=== PATIENT | female | born 1955 | race Caucasian/White ===

== ENCOUNTER → 2019-11-24 | Outpatient (CLI) | payer BC, OTHER ==
[~2019-11-24] MED LIST: ALLOPURINOL 30300 M2 PO; AMBIEN 5 MG TABL5 M1 PO; BACTRIM 400-801 EACH PO; BACTRIM DS TAB1 EAC1 PO; BACTRIM DS TAB1 EACH PO; ENOXAPARIN40 MG/0.1 SUBQ; FEVERALL650 MG RECTAL; FLEXERIL PO; FLONASE 0.05%50 MCG NASAL; FOSAMAX 70 MG T70 MG PO; FOSAMAX PLUS D1 EAC1 PO; HYDROCODONE-AP1 EAC6 PO; IBUPROFEN 800800 MG PO; KLOR-CON 1010 MEQ PO; LOCOID 0.1% CRE15 GM TP; MACRODANTIN100 MG PO; MAXZIDE-25 MG1 EACH PO; NAPROSYN500 MG PO; OXYCONTIN10 M1 PO; PERCOCET 5-3251 EACH PO; PERCOCET PO; PHENAZOPYRIDIN200 M2 PO; VALIUM5 MG PO; VITAMIN D 5050000 I1 PO; XARELTO10 MG PO
== END ==
LOC: HYPER 12:11
PROVIDERS: ATTEND Emergency Medicine
DX: L97.812 Non-pressure chronic ulcer of other part of right lower leg with fat layer exposed (principal); L03.115 Cellulitis of right lower limb; L03.116 Cellulitis of left lower limb; L30.9 Dermatitis, unspecified; L20.9 Atopic dermatitis, unspecified; R60.0 Localized edema; R21 Rash and other nonspecific skin eruption; I10 Essential (primary) hypertension; E78.5 Hyperlipidemia, unspecified; L40.9 Psoriasis, unspecified; M81.0 Age-related osteoporosis without current pathological fracture; M19.90 Unspecified osteoarthritis, unspecified site; M85.80 Other specified disorders of bone density and structure, unspecified site; M48.00 Spinal stenosis, site unspecified

== ENCOUNTER → 2019-12-07 | Outpatient (CLI) | payer BC, OTHER | LOC: HYPER 11:58 | PROVIDERS: ATTEND Emergency Medicine | DX: L97.812 Non-pressure chronic ulcer of other part of right lower leg with fat layer exposed (principal); L03.115 Cellulitis of right lower limb; L03.116 Cellulitis of left lower limb; R21 Rash and other nonspecific skin eruption; L20.9 Atopic dermatitis, unspecified; R60.0 Localized edema; M19.90 Unspecified osteoarthritis, unspecified site; M48.00 Spinal stenosis, site unspecified; M85.80 Other specified disorders of bone density and structure, unspecified site; L40.9 Psoriasis, unspecified; M10.9 Gout, unspecified; E78.5 Hyperlipidemia, unspecified ==

== ENCOUNTER 2020-09-20 14:11 | Inpatient (IN) | payer BC, OTHER ==
[~2020-09-20] VITALS: Ht 160 cm; Wt 59.8 kg
--- NOTE | 2020-09-20 14:30 | NUR ---
PT SENT FROM PCP OFFICE WITH STATED NEW ONSET AFIB. PT ALSO STATES "LABS ARE OFF" PT NOTES SWELLING IN BLE "FOR AWHILE" PT DENIES SOB OR CP. PT STATES HX OF DERMATITIS AND PSORIOSIS AND STATES SHE GETS A SHOT BIWEEKLY FOR THIS. PT UPPER BODY HAS MULTIPLE AREAS OF BRUISING AND SKIN ALL OVER IS EXTREMELY FRAGILE IN NATURE. PT IS IN WHAT APPEARS TO BE AFIB ON THE MONITOR. PT HAS HX OF DAILY DRINKING "SEVERAL MIXED DRINKS AT NIGHT" STATES SHE PARTIED THIS WEEKEND AT [facility]. PT HAS SLIGHT TREMOR AND STATES SHE SOMETIMES GETS THAT WHEN SHE DRINKS A LOT. PT DENIES HX OF ETOH WITHDRAWAL IN THE PAST. PT IS ALERT AND ORIENTED X4, GCS 15, PT VSS ON RA, MARTINEZ, CALL LIGHT ENCOURAGED TO USE
[2020-09-20 14:36] VITALS: BP 158/94
[2020-09-20 15:11] LABS: ABSOLUTE NEUTROPHILS 5.3 thou/uL (1.4-8.2); BASOPHILS 0.8 % (0.0-2.0); EOSINOPHILS 2.3 % (0.0-3.0); HEMATOCRIT 32.9 % (37.0-47.0); HEMOGLOBIN 10.5 gm/dL (12.0-15.0); LYMPHOCYTES 20.4 % (24.0-44.0); MCH 35.3 pg (26.0-34.0); MCV 110.2 fL (80.0-100.0); MONOCYTES 10.1 % (1.0-8.0); PLATELET COUNT 212 thou/uL (150-400); POLYS 66.4 % (36.0-66.0); RBC 2.99 mil/uL (4.20-5.00); RDW 17.3 % (10.5-14.5)
[2020-09-20 15:21] LABS: ANION GAP 9 mmol/L (7-16); BUN 16 mg/dL (7-18); CALCIUM 8.6 mg/dL (8.5-10.1); CHLORIDE 109 mmol/L (98-107); CO2 24 mmol/L (21-32); GLUCOSE 112 mg/dL (74-106); POTASSIUM 5.4 mmol/L (3.5-5.1); SODIUM 142 mmol/L (136-145)
[2020-09-20 15:29] LABS: D-DIMER 2.48 ug/mLFEU (0.19-0.50)
[2020-09-20 15:32] LABS: ALBUMIN 2.2 g/dL (3.4-5.0); MAGNESIUM 1.4 mg/dL (1.8-2.4); SGOT 46 U/L (15-37); SGPT 16 U/L (14-59); TOTAL BILIRUBIN 0.7 mg/dL (0.2-1.0); TOTAL PROTEIN 6.2 g/dL (6.4-8.2); TROPONIN-I <0.06 ng/mL (<0.06)
--- NOTE | 2020-09-20 16:02 | NUR ---
WENT TO ESTABLISH SECOND LINE AT THIS TIME PER ED PROVIDER. THIS RN DID NOT SEE ANYTHING IN THE PT AC SPACE OR HIGHER ON EITHER ARM. AFTER LOOKING PT STATES "I DO NOT WANT TO STAY HERE OVERNIGHT AND I DO NOT WANT TO SIT HERE AND BE POKED AND PRODDED ALL NIGHT, I WANT TO GO HOME" THIS RN EXPLAINED THE REASONING BEHIND THE TESTS WE RAN AND NEEDED TO STILL RUN AND THE REASON SHE WOULD MOST LIKELY NEED TO BE ADMITTED. PT NEEDS FURTHER EDUCATION. ED PROVIDER NOTIFIED
[2020-09-20 16:23] LABS: TARGET CELLS FEW
--- NOTE | 2020-09-20 17:50 | NUR ---
HOSPITALIST AWARE THAT PT DOES NOT HAVE APPROPRIATE LINE FOR CTA AT THIS TIME PT HAD REFUSED AT THE TIME FOR IV AND WAS NOT WANTING TO BE ADMITTED. AFTER FURTHER DISCUSSION WITH ED PROVIDER AND THEN HOSPITALIST PT WILLING TO BE ADMITTED. WILL CONTINUE TO FOR SECOND APPROPRIATE IV LINE IV TEAM HAS GONE HOME FOR THE NIGHT
[2020-09-20] MEDS ORDERED: ALLOPURINOL 30300 M1 PO (18:18)
[2020-09-20] MEDS ORDERED: VALSARTAN80 MG PO (18:19)
[2020-09-20] MEDS ORDERED: NEURONTIN 300M300 M2 PO (18:20)
[2020-09-20] MEDS ORDERED: ESTRADIOL42.5 GM VAG (18:28)
[2020-09-20] MEDS ORDERED: BETAMETHASONE D15 G4 TOP (18:29)
[2020-09-20] MEDS ORDERED: MUPIROCIN22 GM TOP (18:29)
[2020-09-20] MEDS ORDERED: DESLORATADINE5 MG PO (18:30)
[2020-09-20] MEDS ORDERED: FOLIC ACID1 MG PO (18:30)
[2020-09-20] MEDS ORDERED: NAPROSYN500 MG PO (18:31)
[2020-09-20] MEDS ORDERED: DUPIXENT300 MG/2 M SUBQ (18:32)
[2020-09-20 18:45] VITALS: BP 134/83
--- NOTE | 2020-09-20 18:47 | NUR ---
REPORT GIVEN TO SHERYL WILLIAMSON AT THIS TIME. READY FOR TRANSPORT TO CCU AFTER CTA.
--- NOTE | 2020-09-20 19:00 | NUR ---
REPORT GIVEN TO SHERYL BRYANT AT THIS TIME. RN AWARE REPORT HAS BEEN CALLED TO CCU AND THAT PT IS CURRENTLY IS IN CT AND IS READY FOR TRANSPORT ONCE SHE RETURNS BACK TO ED
[2020-09-20 19:49] LABS: INR 0.97; PROTIME 10.6 Seconds (10.5-12.1)
[2020-09-20 20:42] VITALS: BP 120/77
[2020-09-20] MEDS ORDERED: SINGULAIR 10 MG10 M1 PO (21:27)
[2020-09-20] MEDS ORDERED: FLEXERIL PO (21:31)
[2020-09-21 01:09] VITALS: BP 96/64
[2020-09-21 04:33] VITALS: BP 101/73
--- NOTE | 2020-09-21 06:14 | NUR ---
PT ARRIVED TO UNIT APPROX 2024, ADMISSION AND ASSESSMENT COMPLETED, CONSENTS SIGNED. PT STEADY TO USE BSC BY SELF, USES CANE TO AMBULATE. INTERMIT AFIB OVERNIGHT, OCCASIONALLY TACHY IN THE 120-130 RANGE, BEFORE RETURNING TO A SR IN 80'S. FIRM EDEMA IN LOWER LEGS, WITH SOME PITTING EDEMA ALONG THE INNER THIGHS, RIGHT WORSE THAN LEFT. HAS PSORIASIS AND CHRONIC DERMATITIS, WITH RASHY AREAS ON INNER THIGHS AND CALVES/SHINS; SKIN TEAR ON CENTER CHEST WHERE A TELE PATCH WAS REMOVED. NO OTHER CONCERNS, WILL CONTINUE TO MONITOR.
--- NOTE | 2020-09-21 06:44 | EKG ---
[place] [address] [facility] [place] [address] ELECTROCARDIOGRAM REPORT Name: NICHOL HOUSE Room #: 201-P ADM IN M.R.#: [id number] Admission: 09/20/20 Attend Phys: Pradeep Schwab MD Discharge: Date of : 55 Report #: [id number] 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 : 1955 Requested By: Karin Mandel Order Number: [id number] : Jose Braun Measurements Intervals [place] Rate: 108 P: UT: QRS: -5 QRSD: 95 T: QT: 291 QTc: 390 Interpretive Statements Atrial fibrillation Low voltage, extremity and precordial leads Borderline repolarization abnormality Compared to ECG 11/07/2014 10:07:08 Low QRS voltage now present Sinus rhythm no longer present Poor R-wave progression no longer present Electronically Signed On 09-21-2020 6:44:40 CDT by Jose Braun [email or web address] <ELECTRONICALLY SIGNED> By: Jose Braun MD, [facility] 09/21/20 0644 1441 1441 Jose Braun MD, [facility] /EPI
[2020-09-21 07:56] VITALS: BP 111/69
[2020-09-21 08:48] LABS: CALCIUM 8.5 mg/dL (8.5-10.1); CREATININE 0.9 mg/dL (0.6-1.0); MAGNESIUM 1.8 mg/dL (1.8-2.4)
[2020-09-21 08:49] LABS: POTASSIUM 4.1 mmol/L (3.5-5.1)
--- NOTE | 2020-09-21 09:34 | NUR ---
PT IS AXOX4, PLEASANT; DENIES PAIN. VSS, AFEBRILE. PT HAS BEEN SR AND AFIB ON MONITOR. CARDIOLOGY CONSULTED. PT TO HAVE ECHO THIS AM. LOSARTAN D/C AND METOPROLOL STARTED. POC IS TO HAVE CARDIOLOGY ASSESS ECHO; CONTINUE TO MONITOR HR/BP. LOW FALL PRECAUTIONS. PT IS UP TO BSC, CANE FOR STAIR USE ONLY STATED BY THE PT. NO CONCERNS AT THIS TIME.
[2020-09-21 11:38] VITALS: BP 104/73
--- NOTE | 2020-09-21 13:20 | 2DMMODE ---
[facility] [address] [place] [address] 2 D/M-MODE ECHOCARDIOGRAM Name: NICHOL HOUSE Room #: 201-P ADM IN M.R.#: [id number] Admission: 09/20/20 Attend Phys: Pradeep Schwab MD Discharge: Date of : 55 Report #: [id number] THIS REPORT FOR: cc: CINTHYA CARTER Physician not on staff Romero Caldwell MD ~ APPROVED REPORT Study performed: 09/21/2020 11:00:49 EXAM: Comprehensive 2D, Doppler, and color-flow Echocardiogram Patient Location: Bedside Room #: 201 Status: routine BSA: 1.61 HR: 77 bpm BP: 111/69 mmHg Rhythm: NSR Other Information Study Quality: Good Indications Congestive Heart Failure Hypertension/HDD 2D Dimensions RVDd: 35.47 mm IVSd: 9.84 (7-11mm) LVOT Diam: 18.18 (18-24mm) LVDd: 42.51 mm PWd: 9.03 (7-11mm) Ascending Ao: 30.16 (22-36mm) LVDs: 29.56 (25-40mm) Left Atrium: 37.57 (27-40mm) Aortic Root: 33.44 mm IVC: 26.00 mm Volumes Left Atrial Volume (Systole) Single Plane 4CH: 69.72 mL Single Plane 2CH: 54.81 mL LA ESV Index: 43.00 mL/m2 Aortic Valve AoV Peak Tony.: 0.84 m/s AO Peak Gr.: 2.85 mmHg LVOT Max P.54 mmHg LVOT Max V: 0.80 m/s [facility] [address] [place] [address] 2 D/M-MODE ECHOCARDIOGRAM Name: LACYNICHOL Room #: 201-P [facility] IN [facility].#: [id number] Admission: 09/20/20 Attend Phys: Mary Macias Discharge: Date of : 55 Report #: [id number] SOLEDAD Vmax: 2.45 cm2 Mitral Valve E/A Ratio: 1.9 MV Decel. Time: 137.24 ms MV E Max Tony.: 1.14 m/s MV A Tony.: 0.60 m/s MV PHT: 39.80 ms IVRT: 73.82 ms Pulmonary Valve PV Peak Tony.: 0.95 m/s PV Peak Gr.: 3.62 mmHg Pulmonary Vein P Vein S: 0.30 m/s P Vein A: 0.17 m/s P Vein D: 0.29 m/s P Vein A Dur.: 92.3 msec P Vein S/D Ratio: 1.03 Tricuspid Valve TR Peak Tony.: 2.96 m/s TR Peak Gr.: 35.14 mmHg PA Pressure: 45.00 mmHg Left Ventricle The left ventricle is normal size. There is normal left ventricular wall thickness. The left ventricular systolic function is normal. The left ventricular ejection fraction is within the normal range. LVEF is 60-65%. Right Ventricle The right ventricle is normal size. The right ventricular systolic function is normal. Atria Left atrium is dilated. Right atrium is dilated. Aortic Valve The aortic valve is normal in structure. The Aortic valve is sclerotic. No aortic regurgitation is present. There is no aortic valvular stenosis. Mitral Valve The mitral valve is normal in structure. Mild to moderate mitral regurgitation. No evidence of mitral valve stenosis. Tricuspid Valve [facility] [address] [place] [address] 2 D/M-MODE ECHOCARDIOGRAM Name: NICHOL HOUSE Room #: 201-P [facility] IN .R.#: [id number] Admission: 09/20/20 Attend Phys: Mary Macias Discharge: Date of : 55 Report #: [id number] The tricuspid valve is normal in structure. There is mild to moderate tricuspid regurgitation. Estimated PAP 42 mmHg. Pulmonic Valve The pulmonary valve is normal in structure. There is no pulmonic valvular regurgitation. Great Vessels The aortic root is normal in size. IVC is dilated and collapses <50% with inspiration. Pericardium There is no pericardial effusion. <Conclusion> The left ventricle is normal size. There is normal left ventricular wall thickness. The left ventricular systolic function is normal. The right ventricle is normal size. Left atrium is dilated. The Aortic valve is sclerotic. Mild to moderate mitral regurgitation. There is mild to moderate tricuspid regurgitation. <ELECTRONICALLY SIGNED> By: Romero Caldwell MD 09/21/209 18 18 Romero Caldwell MD /INF
[2020-09-21 15:38] VITALS: BP 107/70
--- NOTE | 2020-09-21 16:00 | EKG ---
[place] [address] [facility] [place] [address] ELECTROCARDIOGRAM REPORT Name: NICHOL HOUSE Room #: 201-P ADM IN M.R.#: [id number] Admission: 09/20/20 Attend Phys: Pradeep Schwab MD Discharge: Date of : 55 Report #: [id number] [facility] ED Test Date: 2020-09-20 Test Time: 14:17:06 Pat Name: NICHOL HOUSE Department: Room: 201 Gender: F Mapping Pilot: CONSTANTINO : 1955 Requested By: Pradeep Schwab Order Number: [id number] : Jose Braun Measurements Intervals [place] Rate: 167 P: -4 IA: 109 QRS: 6 QRSD: 163 T: 1 QT: 362 QTc: 604 Interpretive Statements Artifact, Normal Sinus Rhythm at 70 BPM Compared to ECG 11/07/2014 10:07:08 No significant change Electronically Signed On 09-21-2020 16:00:16 CDT by Jose Braun [email or web address] <ELECTRONICALLY SIGNED> By: Jose Braun MD, [facility] 09/21/20 1600 1417 16 Jose Braun MD, FAC /EPI
[2020-09-21 19:18] VITALS: BP 109/76
[2020-09-22 03:58] VITALS: BP 115/78
[2020-09-22 04:18] LABS: HEMATOCRIT 28.2 % (37.0-47.0); HEMOGLOBIN 9.2 gm/dL (12.0-15.0); MCHC 32.6 g/dL (28.0-37.0); MCV 110.5 fL (80.0-100.0); RBC 2.56 mil/uL (4.20-5.00); RDW 17.2 % (10.5-14.5); WBC 7.3 thou/uL (4.0-11.0)
[2020-09-22 04:29] LABS: CALCIUM 8.6 mg/dL (8.5-10.1); CREATININE 1.1 mg/dL (0.6-1.0); MAGNESIUM 1.8 mg/dL (1.8-2.4); POTASSIUM 4.2 mmol/L (3.5-5.1)
--- NOTE | 2020-09-22 06:26 | NUR ---
ASSUME CARE 1900. PT/VITALS STABLE. INTERMITTENT BILATERAL LOWER EXTREMITY PAIN/PAIN PILL AND MUSCLE RELAXANT ON BOARD. TOLERATES ACTIVITY WELL. STEADY ON FEET TO BSC. USES CANE SOMETIMES. ASSESSMENT CHARTED. PROGRESSING WELL WITH POC. PLAN IS TO CONTINUE TO DIURESE PT AND MONITRO ELECTROLYTE LEVELS. NO WITHDRAWALS NOTED. NO DISTRESS THROUGH THE NIGHT. SR ON MONITOR. WILL CONTINUE TO MONITOR AND FOLLOW WITH POC
[2020-09-22 07:15] VITALS: BP 112/82
[2020-09-22 09:10] LABS: FOLIC ACID 42.2 ng/mL (8.6-58.9)
[2020-09-22] MEDS ORDERED: METOPROLOL SUCC50 MG PO (09:12)
[2020-09-22] MEDS ORDERED: LASIX 20 MG TAB20 MG PO (09:12)
[2020-09-22] MEDS ORDERED: ASA81BEC PO (09:14)
[2020-09-22 10:28] LABS: HEMATOCRIT 27.2 % (37.0-47.0); HEMOGLOBIN 8.6 gm/dL (12.0-15.0); MCH 35.6 pg (26.0-34.0); MCHC 31.8 g/dL (28.0-37.0); MCV 112.1 fL (80.0-100.0); RBC 2.43 mil/uL (4.20-5.00); RDW 17.3 % (10.5-14.5); WBC 7.9 thou/uL (4.0-11.0)
[2020-09-22 11:15] VITALS: BP 109/77
[2020-09-22 14:39] LABS: URINE BILIRUBIN NEGATIVE (Negative); URINE BLOOD TRACE (Negative); URINE CLARITY CLEAR; URINE COLOR YELLOW; URINE GLUCOSE-RANDOM* NEGATIVE (Negative); URINE KETONES NEGATIVE (Negative); URINE LEUKOCYTES 2+ (Negative); URINE NITRITE POSITIVE (Negative); URINE PROTEIN (DIPSTICK) NEGATIVE (Negative); URINE UROBILINOGEN 0.2 E.U./dl (0.2-1.0)
[2020-09-22 14:51] LABS: BACTERIA >30 Many /HPF (None Seen); CASTS None Seen /LPF (None Seen); SQUAMOUS 0-3 Few /LPF (0-3); URINE RBC 1-2 Rare /HPF (NONE SEEN); URINE WBC >25 Many /HPF (NONE SEEN)
[2020-09-22 14:52] LABS: CRYSTALS None Seen /LPF (None Seen)
[2020-09-22 15:00] VITALS: BP 132/88
[2020-09-22 19:23] VITALS: BP 109/49
--- NOTE | 2020-09-22 19:34 | NUR ---
ASSUMED CARE SHIFT CHANGE. VSS. ASSESSMENTS CHARTED MEDS GIVEN. PT UP KEI WELL. DIURESING APPROPRIATELY. UA AND STOOL SAMPLE SENT. REFER TO URINE RESULTS. STOOL PENDING. PHYS NOTIFIED ORDERS RECEIVED. PLAN TO MONITOR HGB, AWAIT STOOL RESULTS. POSSIBLE DC IN AM. CONTINUING POC. REPORT PASSED ONTO NOC RN.
[2020-09-22 19:40] VITALS: BP 133/88
--- NOTE | 2020-09-23 03:15 | NUR ---
SLEPT MOST OF SHIFT. UP TO BEDSIDE COMODE NEEDED WITH STANDBY ASSIST NEEDED. HAD ONE DIARRHEA STOOL LAST NOC PAST CONSTIPATION MEDICATIONS. TRAMADOL GIVEN NEEDED FOR LOWER EXTREMITY PAIN. MAINTAIN FLUID RESTRICTION. WORKING ON GOALS AND PLAN OF CARE FOR NOC. POSSIBLE DISCHARGE THIS AM. CONTINUE TO ASSES CLOSELY.
[2020-09-23 04:12] VITALS: BP 114/74
[2020-09-23 07:25] VITALS: BP 110/73
[2020-09-23 11:17] VITALS: BP 88/55
[2020-09-23] MEDS ORDERED: LEVOFLOXACIN500 MG PO (11:19)
[2020-09-23] MEDS ORDERED: FLEXERIL PO (11:19)
[2020-09-23] MEDS ORDERED: BAYER CHEWABLE81 MG PO (11:21)
[2020-09-23 12:32] VITALS: BP 88/55
== END 2020-09-23 13:28 | disposition home or self-care (01) | DRG 291 ==
LOC: ER 14:11 → 2N 19:10 → EROBS 19:10 → 2N 19:57
PROVIDERS: Emergency Medicine; Internal Medicine; Nurse Practitioner Family; ADMIT Hospitalist; ATTEND Hospitalist
DX: I11.0 Hypertensive heart disease with heart failure (principal); E43 Unspecified severe protein-calorie malnutrition; R18.8 Other ascites; J91.8 Pleural effusion in other conditions classified elsewhere; I50.9 Heart failure, unspecified; I89.0 Lymphedema, not elsewhere classified; E83.42 Hypomagnesemia; F10.10 Alcohol abuse, uncomplicated; G62.9 Polyneuropathy, unspecified; Y90.9 Presence of alcohol in blood, level not specified; D63.8 Anemia in other chronic diseases classified elsewhere; R74.01 Elevation of levels of liver transaminase levels; I08.1 Rheumatic disorders of both mitral and tricuspid valves; I48.91 Unspecified atrial fibrillation; E87.5 Hyperkalemia; L30.9 Dermatitis, unspecified; Z82.5 Family history of asthma and other chronic lower respiratory diseases; Z79.899 Other long term (current) drug therapy; Z98.42 Cataract extraction status, left eye; Z68.23 Body mass index [BMI] 23.0-23.9, adult
CPT/HCPCS: 10081

== ENCOUNTER 2021-01-19 17:00 | Inpatient (IN) | payer BC, OTHER ==
[~2021-01-19] VITALS: Ht 162.6 cm; Wt 59.4 kg
[2021-01-19 17:00] VITALS: BP 92/62
[~2021-01-19 17:00] MED LIST changes: +ALLOPURINOL 30300 M1 PO; +ASA81BEC PO; +BAYER CHEWABLE81 MG PO; +BETAMETHASONE D15 G4 TOP; +DESLORATADINE5 MG PO; +DUPIXENT300 MG/2 M SUBQ; +ESTRADIOL42.5 GM VAG; +FOLIC ACID1 MG PO; +LASIX 20 MG TAB20 MG PO; +LEVOFLOXACIN500 MG PO; +METOPROLOL SUCC50 MG PO; +MUPIROCIN22 GM TOP; +NEURONTIN 300M300 M2 PO; +SINGULAIR 10 MG10 M1 PO; +VALSARTAN80 MG PO
--- NOTE | 2021-01-19 17:30 | NUR ---
PT NOTES NEUROPATHY IN BLE AND PULSE IS ALWAYS FAINT. CAP REFILL LESS THAN 3 SECONDS, PT ABLE TO MOVE TOES. SHORTENING AND INWARD ROTATION NOTED TO LLE
[2021-01-19 18:14] LABS: BASOPHILS 0.2 % (0.0-2.0); HEMATOCRIT 29.7 % (37.0-47.0); HEMOGLOBIN 9.8 gm/dL (12.0-15.0); LYMPHOCYTES 10.4 % (24.0-44.0); MONOCYTES 8.1 % (1.0-8.0); PLATELET COUNT 177 thou/uL (150-400); POLYS 81.3 % (36.0-66.0); RBC 2.72 mil/uL (4.20-5.00); RDW 16.3 % (10.5-14.5); WBC 9.9 thou/uL (4.0-11.0)
[2021-01-19 18:32] LABS: CALCIUM 8.7 mg/dL (8.5-10.1); CREATININE 2.1 mg/dL (0.6-1.0); POTASSIUM 5.4 mmol/L (3.5-5.1)
[2021-01-19 18:43] LABS: ANISOCYTOSIS 1+; MACROCYTES 1+
[2021-01-19] MEDS ORDERED: VALSARTAN80 MG PO (22:07)
[2021-01-19] MEDS ORDERED: LASIX 20 MG TAB20 MG PO (22:08)
[2021-01-19 22:12] LABS: URINE BILIRUBIN NEGATIVE (Negative); URINE BLOOD 3+ (Negative); URINE COLOR YELLOW; URINE GLUCOSE-RANDOM* NEGATIVE (Negative); URINE KETONES NEGATIVE (Negative); URINE PROTEIN (DIPSTICK) 2+ (Negative); URINE UROBILINOGEN 0.2 E.U./dl (0.2-1.0)
[2021-01-19 22:16] LABS: URINE LEUKOCYTES-REFLEX 3+ (Negative); URINE NITRITE-REFLEX POSITIVE (Negative)
[2021-01-19 22:18] LABS: BACTERIA-REFLEX >30 Many /HPF (None Seen); CASTS None Seen /LPF (None Seen); CRYSTALS None Seen /LPF (None Seen); MUCUS 0-3 Light strn/LPF (None Seen); SQUAMOUS None Seen /LPF (0-3); URINE RBC 3-10 Few /HPF (NONE SEEN); URINE WBC-REFLEX >25 Many /HPF (0-5)
[2021-01-19 22:19] LABS: URINE CLARITY CLOUDY
[2021-01-20 04:49] VITALS: BP 99/59
[2021-01-20 05:04] LABS: HEMATOCRIT 26.7 % (37.0-47.0); HEMOGLOBIN 9.3 gm/dL (12.0-15.0); MCH 38.2 pg (26.0-34.0); MCHC 34.6 g/dL (28.0-37.0); MCV 110.3 fL (80.0-100.0); RBC 2.42 mil/uL (4.20-5.00); RDW 16.1 % (10.5-14.5); WBC 8.8 thou/uL (4.0-11.0)
[2021-01-20 05:20] LABS: CALCIUM 8.2 mg/dL (8.5-10.1); CREATININE 1.5 mg/dL (0.6-1.0)
[2021-01-20 06:07] VITALS: BP 98/63
[2021-01-20 06:53] VITALS: BP 135/74
--- NOTE | 2021-01-20 07:30 | NUR ---
PT ARRIVED TO THE UNIT AT AROUND 0615 HRS.PT IS ALERT AND ORIENTED.DX R HIP FRACTURE. IVF TO LAC.ROOM AIR. FALL EDUCATION PROVIDED AND CONSENTS IN PLACE.REPORT GIVEN TO ONCOMING SHERYL SINGH.
--- NOTE | 2021-01-20 11:33 | EKG ---
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 : 1955 Requested By: Baljeet Hurst Order Number: [id number] MD: Romero Caldwell Measurements Intervals [place] Rate: 101 P: -58 WA: 152 QRS: -53 QRSD: 80 T: QT: 347 QTc: 450 Interpretive Statements Atrial fibrillation/flutter Left axis deviation Low voltage, extremity and precordial leads Nonspecific T abnrm, anterolateral leads Compared to ECG 09/20/2020 14:41:45 No significant change Electronically Signed On 01-20-2021 11:33:46 CDT by Romero Caldwell [email or web address] <ELECTRONICALLY SIGNED> By: Romero Caldwell MD 01/20/21 1133 06 06 Romero Caldwell MD /JONAS
--- NOTE | 2021-01-20 11:46 | NUR ---
PT ASSESSED AT START OF SHIFT. DR. BERRIOS IN TO SEE PT. PT LEFT FOR OR AT 0830 AND RETURNED AT 1130. PT AWAKE, NO C/O PAIN. TEMP 95 SO WARM BLANKETS GIVEN AND HEAD COVERED. WATER TAKEN. RESTING COMFORTABLY.
[2021-01-20 16:25] VITALS: BP 95/55
[2021-01-20 21:00] VITALS: BP 102/81
[2021-01-21] VITALS (7 sets, daily range): BP systolic 82–140; BP diastolic 33–120
--- NOTE | 2021-01-21 04:08 | NUR ---
Pt oriented to own ability, awake for the most part of the night, right hip dressing dry and intact, pt concerned about mobility. Reports unsure of how to position the right leg appropriately. Education provided to keep the hip align to avoid complications. Iced water and personal belonging on the bedside table within reach. Abdomen round, soft and nontender, IV patent working effectively. No adverse reaction noted from the current treatment. Pt reported pain from the right hip, scheduled prn medicaton administered per order. +2 strong pulse in all four extremity and distal to the surgical site (po[liteal and pedal) muscle strenght 5/5 against resistance, PERRLA, skin warm and dry, appropriate for race. Multiple bruises noted chest, bilat arms and legs from itching. Will continue to monitor the patient.
[2021-01-21 05:46] LABS: MCH 38.4 pg (26.0-34.0); MCHC 33.6 g/dL (28.0-37.0); MCV 114.3 fL (80.0-100.0); RBC 1.64 mil/uL (4.20-5.00); RDW 16.5 % (10.5-14.5); WBC 8.8 thou/uL (4.0-11.0)
[2021-01-21 05:50] LABS: HEMATOCRIT 18.8 % (37.0-47.0); HEMOGLOBIN 6.3 gm/dL (12.0-15.0)
--- NOTE | 2021-01-21 08:13 | NUR ---
PT TRANSFERRED TO ROOM 437 DUE TO TELE ARTIFACTS. BIO MED PAGED PER HOUSE SUP. HGB 6.3 ORDERS RECIEVED FOR 1UNIT OF RBC. PT AWARE. REPORT GIVEN TO DAY RN.
--- NOTE | 2021-01-21 08:18 | O ---
[facility] [place] [address] [address] OPERATIVE REPORT Name: NICHOL HOUSE Room #: 437-P [facility] IN M.R.#: [id number] Admission: 01/19/21 Attend Phys: Pradeep Schwab MD Discharge: Date of : 55 Report #: [id number] THIS REPORT FOR: cc: FAM - Family physician unknown FAM - Family physician unknown Yamileth Sanchez MD ~ DATE OF SERVICE: 01/20/2021 PREOPERATIVE DIAGNOSIS: Right intertrochanteric/subtrochanteric femur fracture. POSTOPERATIVE DIAGNOSIS: Right intertrochanteric/subtrochanteric femur fracture. PROCEDURE PERFORMED: Intramedullary nail fixation, right IT/subtroch femur fracture. SURGEON: Yamileth Sanchez MD TYPE OF ANESTHESIA: General mask anesthesia. ESTIMATED BLOOD LOSS: 100 mL COMPLICATIONS: None. CONDITION: Stable. DISPOSITION: To recovery room. INDICATIONS: The patient is a 65-year-old female with the above-mentioned diagnosis. She elects for operative treatment. The risks, benefits, alternatives and complications were discussed including but not limited to infection, damage to vessels and nerves, incomplete relief or worsening of any symptoms. Informed consent was obtained, the correct extremity was identified and labeled by myself after verbal confirmation of the patient as well as visual confirmation and signed informed consent. DESCRIPTION OF PROCEDURE: The patient was brought back to the operating room. She underwent general anesthesia on the cart and then was transferred to the fracture table, taking care to pad bony prominences and neurovascular structures. The feet were carefully padded. The feet were placed into the traction boots and then the right leg was placed into a slight adduction, internal rotation and traction to reduce the fracture. Based on the AP and lateral fluoroscopy views. The left leg was placed in the mild amount of extension. The AP and lateral views were taken with fluoroscopy to ensure an adequate ability to visualize the femur as well as adequate reduction. Reduction was excellent. Next, a timeout was taken to verify the correct [address] [address] OPERATIVE REPORT Name: NICHOL HOUSE Room #: 437-P [facility] IN ..#: [id number] Admission: 01/19/21 Attend Phys: Pradeep Schwab MD Discharge: Date of : 55 Report #: [id number] patient, operative procedure, operative site, all concurred. Next, the greater trochanter was identified using a Roberts and an approximately 5 cm incision was made proximal and just posterior to the greater trochanter. The fascia was incised and a guidewire was placed down the femur. This was checked under both AP and lateral views. Next, the proximal femur was drilled using soft tissue protection. Next, a long guidewire was placed down the femoral canal to the superior aspect of the patella. This was checked under both AP and lateral planes and found to be the appropriate position. Next, the proximal femur was drilled to 11.5 mm. At 11.5 mm, there was a moderate amount of chatter indicating the correct size. So, a 10 mm x 380 mm nail was chosen. The nail had previously been measured based on the guidewire. It was placed down the femoral canal, checked in both AP and lateral planes and had excellent position and excellent fixation. Next, the guidewire was removed. The skin and fascia was incised for the helical blade and then the guidewire was placed for the helical blade. It was checked under both AP and lateral planes and found to be in the appropriate position. The blade was measured approximately 105 and so a 100 mm nail was chosen. The proximal cortex was drilled. The blade was placed and had excellent fixation and good position in both AP and lateral planes. The blade was then locked into the plate in position. Next, a perfect [place] technique was utilized in order to place a distal and then a dynamic screw. This had excellent fixation. The proximal hole was initially utilized, but most likely due to some toggling of the nail within the canal, this screw was difficult. She did have 2 distal locking screws with good bicortical fixation. The AP and lateral views all showed good position of the fracture and the hardware. The wounds were all thoroughly irrigated. The fascia was closed with 0 Vicryl suture. Subcutaneous tissue was closed with 2-0 Vicryl suture and the skin was closed with olttie. The wounds were dressed with Xeroform and sterile gauze. She was placed in a bulky dressing. All toes were pink and brisk capillary refill at the conclusion of case. All sponge and needle counts were correct. The patient transferred to postop recovery in stable condition. <ELECTRONICALLY SIGNED> By: Yamileth Sanchez MD 01/21/2118 8 0953 Yamileth Sanchez MD /cece
--- NOTE | 2021-01-21 08:18 | HC ---
[facility] [place] [address] [address] CONSULTATION Name: NICHOL HOUSE Room #: 437-P [facility] IN M.R.#: [id number] Admission: 01/19/21 Attend Phys: Pradeep Schwab MD Discharge: Date of : 55 Report #: [id number] THIS REPORT FOR: cc: FAM - Family physician unknown FAM - Family physician unknown Yamileth Sanchez MD ~ DATE OF SERVICE: 01/20/2021 ORTHOPEDIC CONSULTATION NOTE REASON FOR CONSULTATION: Right hip fracture. HISTORY OF PRESENT ILLNESS: The patient is a 65-year-old female who fell from a standing height onto her right lower extremity at her [place] house and reported excruciating right hip pain. She then drove 4 hours to [facility] to be closer to home. She was evaluated and diagnosed with a right hip fracture and admitted. REVIEW OF SYSTEMS: NEUROLOGIC: Denies numbness or tingling. MUSCULOSKELETAL: Denies other extremity pain besides the right hip pain. PAST MEDICAL HISTORY: Significant for left total hip replacement, kyphoplasty, history of atrial fibrillation, congestive heart failure, history of alcohol abuse from the patient's medical record, hypertension. The patient reports a recent urinary tract infection MEDICATIONS: Include metoprolol, furosemide, aspirin, levofloxacin, and aspirin. Also reported medications include allopurinol, estradiol, betamethasone, desloratadine, mupirocin, Dupixent, montelukast and gabapentin. ALLERGIES: No known drug allergies. SOCIAL HISTORY: Does drink alcohol. Denies smoking. Ambulates with a cane. Drinks 2-3 whiskey drinks a day. Is . FAMILY HISTORY: Noncontributory. LABORATORY STUDIES: Done on 01/20/2021 show white blood cell count 8.8, hemoglobin 9.3, hematocrit 26.7, platelet count 152. Chemistry shows a sodium slightly low at 135, potassium 5, creatinine is slightly elevated at 1.5, calcium is low at 8.2. COVID test is negative. PHYSICAL EXAMINATION: GENERAL: The patient is alert and oriented. She interacts appropriately. She is a well-developed, well-nourished, but very thin female in mild distress [facility] [address] [place] [address] CONSULTATION Name: NICHOL HOUSE Room #: 437-P ADM IN M.R.#: [id number] Admission: 01/19/21 Attend Phys: Pradeep Schwab MD Discharge: Date of : 55 Report #: [id number] secondary to pain. EXTREMITIES: Bilateral upper extremities: She has diffuse bruising, which she reports is from there her family was attempting to get her in the car yesterday. Her skin is otherwise clean, dry and intact. The bilateral upper extremities are grossly neurovascularly intact with grossly intact motor and sensory function. She moves both upper extremities without pain. Both upper extremities are nontender to palpation. Right lower extremity: The leg shortened and rotated. She does not have any tenderness to palpation to the knee, leg, ankle or foot. No pain with range of motion of the knee, leg, ankle or foot and significant pain with attempted range of motion of the right hip. Skin is clean, dry and intact. Gross motor and sensory function is intact. Left lower extremity examination: Grossly normal sensory and motor function. Skin is clean, dry and intact. She moves her left lower extremity without pain. RADIOGRAPHS: AP and lateral of the right hip show an intertrochanteric comminuted femur fracture with some subtrochanteric extension. IMPRESSION AND PLAN: Right intertrochanteric femur fracture. Discussed the diagnosis as well as treatment options. Recommend operative stabilization. We discussed the typical procedure as well as postoperative course. We discussed the risks, benefits, alternatives and complications including but not limited to infection, damage to vessels or nerves, nonunion, malunion, hardware failure, hardware rotation, stiffness, blood clots, decreased ambulatory level. We discussed she will be on some type of blood thinner for a few weeks after surgery. Questions were encouraged and answered to the best of my ability. Plan to proceed with surgery later this morning. Thank you very much. <ELECTRONICALLY SIGNED> By: Yamileth Sanchez MD 01/21/21 0818 0624 0650 Yamileth Sanchez MD /nt
--- NOTE | 2021-01-21 09:56 | NUR ---
Assumed care of pt at 0700. Pt a&ox4. Pain controlled with prn pain medications. Dressing c/d/i. Dudley catheter in place. Hg 6.3. Will receive 1 unit of blood today. RA. WBT. Call light within reach. Fall precautions in place. Will continue to monitor.
[2021-01-22 00:28] VITALS: BP 83/52
--- NOTE | 2021-01-22 02:04 | NUR ---
ALERT AND ORIENTED. LOW BP. PT ASYMPTOMATIC. FLUID BOLUS OF 250CC GIVEN. MODERATE U/O.R HIP WITH DRSG C/D/I. GOOD CSM TO R FOOT.FALL PREC IN PLACE.
[2021-01-22 03:29] VITALS: BP 94/53
[2021-01-22 06:02] LABS: HEMATOCRIT 22.8 % (37.0-47.0); HEMOGLOBIN 7.8 gm/dL (12.0-15.0); MCH 35.4 pg (26.0-34.0); MCHC 34.2 g/dL (28.0-37.0); RBC 2.2 mil/uL (4.20-5.00); RDW 20.3 % (10.5-14.5); WBC 8.8 thou/uL (4.0-11.0)
[2021-01-22 06:11] LABS: MCV 103.6 fL (80.0-100.0)
[2021-01-22 08:03] VITALS: BP 95/47
[2021-01-22 11:04] LABS: CALCIUM 7.3 mg/dL (8.5-10.1); CREATININE 1.7 mg/dL (0.6-1.0); MAGNESIUM 1.2 mg/dL (1.8-2.4); POTASSIUM 4.6 mmol/L (3.5-5.1)
--- NOTE | 2021-01-22 11:41 | NUR ---
Assumed care of pt at 0700. Pt a&ox4. Forgetful at times. Dressing c/d/i. Pain controlled with prn pain medicine. Dudley catheter in place. Up to the chair with physical therapy. Call light within reach. Fall precautions in place. Will continue to monitor.
--- NOTE | 2021-01-22 15:52 | NUR ---
PT ADMITTED RELATED TO RT HIP FX S/P IM NAILING. CM REVIEWED CHART AND SPOKE WITH CARE TEAM. PT APPEARED TO BE A&O X4. CM ROLE INTRODUCED. PT INDICATED SHE LIVES IN A RANCH STYLE HOUSE WITH HER SPOUSE WITH NO STEPS TO ENTER AND 6 STEPS INSIDE. 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 PT INDICATED HER PCP IS DR. CINTHYA AG. PT INDICATED SHE IS INTERESTED IN GOING TO A SKILLED REHAB FACILITY [place]ON [place]. CM PROVIDED SNF LIST FOR REVIEW. CM FOLLOWING REGARDING DC PLANNING.
[2021-01-22 16:23] VITALS: BP 99/51
[2021-01-22 19:45] VITALS: BP 101/70
--- NOTE | 2021-01-23 02:15 | NUR ---
PT ALERT AND ORIENTED. R HIP DRSG IS C/D/I.RIGHT FOOT WITH GOOD CSM. [place] TO D/D. DARK YELLOW U/O-CLEARING UP. PT TRYING TO DRINK WATER. OXYCODONE MANAGING PAIN. PT HAS HAD SEVERAL BMS, LOOSE.SHE C/O ABDOMINAL CRAMPING. BOWEL SOUNDS PRESENT, ABDOMEN SOFT AND NOT DISTENTED, PT DENIES ANY NAUSEA. PT HAS SOME ANXIETY .SHE JUST LOOKS WORRIED ABOUT ALOT OF THINGS.THERAPEUTIC COMMUNICATION PROVIDED.CALL LIGHT WITHIN REACH.
[2021-01-23 04:11] VITALS: BP 91/55
[2021-01-23 07:32] VITALS: BP 87/40
[2021-01-23 08:12] VITALS: BP 92/56
[2021-01-23 11:16] LABS: HEMATOCRIT 24.4 % (37.0-47.0); MCH 34.5 pg (26.0-34.0); MCHC 32.7 g/dL (28.0-37.0); MCV 105.6 fL (80.0-100.0); RBC 2.31 mil/uL (4.20-5.00); RDW 21.1 % (10.5-14.5); WBC 9.3 thou/uL (4.0-11.0)
[2021-01-23 11:26] LABS: CALCIUM 7.4 mg/dL (8.5-10.1); CREATININE 1.4 mg/dL (0.6-1.0); MAGNESIUM 1.2 mg/dL (1.8-2.4); POTASSIUM 4.4 mmol/L (3.5-5.1)
--- NOTE | 2021-01-23 11:49 | NUR ---
Assumed care of pt at 0700. Pt a&ox4. Forgetful at times. Dressing c/d/i. Pain controlled with prn pain medications. Fluid bolus infusing for low BP. Call light within reach. Fall precautions in place. Will continue to monitor.
--- NOTE | 2021-01-23 11:58 | NUR ---
SW reviewed chart and spoke with nursing and attending physician. Pt is progressing towards goals for discharge. Discharge to post-acute is anticipated for tomorrow. SW met with pt at bedside to discuss discharge plan: 5N v. SNF. Pt is agreeable with considering 5N. SW explained need for insurance authorization and encouraged pt to have 1-2 SNF options as well. Pt has in-network SNF list at bedside. Pt has been to [facility]F in the past and does not want to return there. SW notified 5N rehab/pre vocational counselor. Consult ordered. SW is following to assist as needed with discharge planning.
[2021-01-23 15:21] VITALS: BP 95/46
[2021-01-23 21:36] VITALS: BP 101/40
[2021-01-23 23:38] LABS: HEMATOCRIT 25.3 % (37.0-47.0); HEMOGLOBIN 8.3 gm/dL (12.0-15.0); MCH 34.9 pg (26.0-34.0); MCHC 32.7 g/dL (28.0-37.0); MCV 106.8 fL (80.0-100.0); RBC 2.37 mil/uL (4.20-5.00); RDW 21.6 % (10.5-14.5); WBC 7.1 thou/uL (4.0-11.0)
[2021-01-23 23:46] LABS: CALCIUM 7.8 mg/dL (8.5-10.1); CREATININE 1.5 mg/dL (0.6-1.0); POTASSIUM 4.6 mmol/L (3.5-5.1)
[2021-01-24] VITALS (7 sets, daily range): BP systolic 81–153; BP diastolic 35–93
--- NOTE | 2021-01-24 03:52 | NUR ---
ASSUMED PT CARE AT 1900.PER REPORT,PT'S HR HAD BEEN ELEVATED ALL SHIFT. PY HAD NOT RECEIVED HER METOPROLOL X 2DAYS.COOK APPRENTICE PASTRY ON DUTY NOTIFIED,ORDER NOTED FOR LABS AND COREG.PER COOK APPRENTICE PASTRY GIVE COREG IF PT'S SBP IS GREATER THAN 90.MED NOT GIVEN BECAUSE HER BP WAS LOWER THAN 90.N ON DUTY NOTIFIED.MAG LOW,WAS REPLACED.LAC SWOLLEN,PT STATED THAT IT HAPPENED WHEN SHE GOT A BLOOD TRANSFUSION.PT STILL ON .TYLENOL GIVEN FOR PAIN NPER PT'S REQUEST.DRSG TO HER R HIP C/D/I.PT ENCOURAGED TO USE HER INCENTIVE SPIROMETER.PT ABLE TO MAKE HER NEEDS KNOWN.CALL LIGHT WITHIN REACH.
--- NOTE | 2021-01-24 09:24 | EKG ---
[facility] [place] [address] ELECTROCARDIOGRAM REPORT Name: NICHOL HOUSE Room #: 437-P ADM IN M.R.#: [id number] Admission: 01/19/21 Attend Phys: Ant Asencio MD Discharge: Date of : 55 Report #: [id number] [facility] Test Date: 2021-01-23 Test Time: 18:06:38 Pat Name: NICHOL HOUSE Department: Room: 437 P Gender: F Computer Graphics Illustrator: fschwalbe : 1955 Requested By: Ant Asencio Order Number: [id number] : Jose Braun Measurements Intervals [place] Rate: 124 P: -1 [place]: 143 QRS: -2 QRSD: 53 T: QT: 336 QTc: 483 Interpretive Statements AFIB Low voltage, extremity and precordial leads Borderline repolarization abnormality Compared to ECG 01/19/2021 17:07:40 Ventricular premature complex(es) now present Electronically Signed On 01-24-2021 9:24:04 CDT by Jose Braun [email or web address] <ELECTRONICALLY SIGNED> By: Jose Braun MD, [facility] 01/24/21923 05 05 Jose Braun MD, [facility] /EPI
--- NOTE | 2021-01-24 11:54 | NUR ---
Assumed pt care this am. Pt is on tele monitor on. Physical and Occupational therapy working with pt this am. Pt c/o of pain and given pain medication. Noted bleeding on rectum due to hemorrhoids. Informed dr and awaiting for new orders. No c/o of nausea and vomiting. Will continue to monitor pt. Follow POC.
--- NOTE | 2021-01-24 15:00 | NUR ---
5N CONSULT COMPLETED BY TAMMY DOSHI NP. CALLED [facility] YESTERDAY AND SPOKE W/ GUDELIA WHO PROVIDED FAX #[phone] TO SUBMIT CLINICAL INFORMATION FOR Pt TO START PROCESS OF REQUESTING AUTHORIZATION FOR ACUTE REHAB. AWAITED FURTHER THERAPY NOTES TO BE ENTERED TODAY AND THEN FAXED CLINICAL INFORMATION TO THE ABOVE NUMBER EARLIER TODAY. AWAITING RESPONSE FROM [facility].
[2021-01-24 15:36] LABS: URINE BILIRUBIN NEGATIVE (Negative); URINE BLOOD 3+ (Negative); URINE CLARITY SL CLOUDY; URINE COLOR YELLOW; URINE GLUCOSE-RANDOM* NEGATIVE (Negative); URINE KETONES NEGATIVE (Negative); URINE LEUKOCYTES 2+ (Negative); URINE NITRITE NEGATIVE (Negative); URINE PROTEIN (DIPSTICK) NEGATIVE (Negative); URINE UROBILINOGEN 0.2 E.U./dl (0.2-1.0)
[2021-01-24 15:59] LABS: BACTERIA 1-9 Few /HPF (None Seen); CASTS None Seen /LPF (None Seen); CRYSTALS None Seen /LPF (None Seen); SQUAMOUS 0-3 Few /LPF (0-3)
--- NOTE | 2021-01-24 17:38 | NUR ---
DC plan is to go to 5N acute rehab once ins auth obtained. Auth request has been submitted. [facility] for cog ordered as well.
[2021-01-25] VITALS (7 sets, daily range): BP systolic 91–123; BP diastolic 50–71
--- NOTE | 2021-01-25 02:46 | NUR ---
PT HAD AN EPISODE OF BLEEDING WITH CLOT FROM HER HEMORHOID AFTER SHIFT CHANGE.PAIN MED GIVEN PER PT'S REQUEST.PT HAD ONE LOOSE STOOL SO FAR.CATHERINE CARE DONE.DRSG TO HER R KNEE AND R HIP CAHNGED.THE DRSG TO HER R HIP SOAKED WITH SANGUINEOUS FLUID.BRUISING NOTED TO HER HIP.PT ABLE TO MAKE HER NEEDS KNOWN.CALL LIGHT WITHIN REACH.
--- NOTE | 2021-01-25 11:03 | NUR ---
on-going assessment: CM REVIEWED CHART. 5N HAS SUBMITTED FOR INSURANCE AUTH AND AWAITING A DECISION AT THIS TIME. CM WILL CONTINUE TO FOLLOW TO ASSIST NEEDED.
--- NOTE | 2021-01-25 12:36 | NUR ---
A/O X 3. 2L O2 VIA NASAL CANNULA. RIGHT AC IV SALINE LOCKED. AFIB ON TELE. PUREWICK IN PLACE FOR INCONT, 4 LIQUID STOOLS THIS SHIFT BED CHURCH, LEFT ARM SWOLLEN FROM PAST IV INFILTRATE, BILATERAL ARM BRUISES, ADB TO RIGHT HIP. PATIENT KEEPS PUTTING HER HAND IN HER BM AFTER SHE GOES, SHE HAS BEEN TOLD BY STAFF THAT STAFF WILL CLEAN HER UP AND SHE DOESNT HAVE TO TOUCH IT. PATIENT STATES SHE UNDERSTANDS.
--- NOTE | 2021-01-25 13:22 | NUR ---
on-going assessment: CM REVIEWED CHART. 5N HAS SUBMITTED FOR INSURANCE AUTH AND AWAITING A DECISION AT THIS TIME. CM CONTACTED PATIENTS SPOUSE LARISA TO PROVIDE AN UPDATE. CM WILL CONTINUE TO FOLLOW TO ASSIST NEEDED.
--- NOTE | 2021-01-26 01:52 | NUR ---
ASSESSSMENT COMPLETED. PT IS ALERT AND ORIENTED, WITH FORGETFULNESS, SHE COULD NOT TELL ME WHAT MONTH IT IS.DENIES PAIN.CALLS TO USE THE BEDPAN,SOME LOOSE STOOL. PT HAS AN EXTERNAL CATH, SHE WAS OBSERVED BEARING DOWN TRYING TO HAVE A BM-SOME ANXIETY NOTED.ANNUSOL APPLIED.SCATTERED BRUISING.ON , NO SOA NOTED.CALL LIGHT WITHIN REACH.
[2021-01-26 08:25] VITALS: BP 122/97
[2021-01-26] MEDS ORDERED: CEFUROXIME500 MG PO (09:40)
[2021-01-26] MEDS ORDERED: ACETAMINOPHEN325 M1 PO (09:41)
[2021-01-26] MEDS ORDERED: PERCOCET PO (09:41)
[2021-01-26] MEDS ORDERED: HEMORRHOIDAL S RECTAL (09:42)
[2021-01-26] MEDS ORDERED: ENOXAPARIN30 MG/0.3 SUBQ (09:43)
--- NOTE | 2021-01-26 10:05 | NUR ---
A/O X 4. ON 2 L O2 VIA NASAL CANNULA. HAS BEEN AFIB ON TELE. LEFT ARM BRUISE. hAS BEEN BEDBOUND. REFUSING PT AND OT. SHE REQUEST THE BED CHURCH OFTEN AND WILL NOT CALL TO BE TAKEN OFF OF IT. HYDROCORTISONE SUPPOSITORY GIVEN. PERCOCET GIVEN FOR RIGHT HIP PAIN. RIGHT THIGH DRESSING DRY, CLEAN, AND INTACT.
[2021-01-26 12:09] VITALS: BP 94/47
--- NOTE | 2021-01-26 15:18 | NUR ---
ON-GOING ASSESSMENT: CM REVIEWED CHART AND SPOKE WITH ATTENDING WHO REPORTS PT CAN DISCHARGE TO 5N TODAY IF INSURANCE AUTH IS OBTAINED. CM SPOKE WITH 5N LIASON WHO REPORTS THEY HAVE INSURANCE AUTH BUT REPORT PT HAS DECLINED AND THEY WILL NEED THEIR LANGUAGE PATH TO [place] IF PATIENT IS APPROPRIATE FOR ACUTE REHAB. LANGUAGE PATH FOR 5N MET WITH PATIENT AND CM WAS NOTIFIED THEY CANNOT ACCEPT PATIENT IS NOT LIKELY ABLE TO TOLERATE 3 HOURS AND APPEARS VERY CONFUSED. CM NOTIFIED ATTENDING AND WILL ATTEMPT TO LOOK AT SNF. CM NOTIFIED PT WELL HER . CM DISCUSSED SNF WITH PATIENT BUT PT STATING SHE WILL TALK WITH HER AND PT DOES NOT APPEAR INTERESTED IN CONVERSTAION. CM LEFT SNF LIST AT BEDSIDE. CM REACHED OUT TO PATIENTS WHO REPORTS SHE HAS BEEN TO [facility] IN THE PAST BUT DOES NOT WANT TO RETURN THERE. HE REPORTS HE WILL REVIEW LIST WITH PATIENT AND GET BACK TO CM. CM NOTIFIED HIM OF SNF LIST AT BEDSIDE WELL CM NUMBER ON IT. CM WILL CONTINUE TO FOLLOW.
--- NOTE | 2021-01-26 16:11 | NUR ---
CALLED NIKKI LEW AT [facility] THIS AM TO FOLLOW UP ON ACUTE REHAB AUTHORIZATION. NIKKI REPORTED THAT AUTHORIZATION HAD BEEN APPROVED. HOWEVER THERAPISTS (PT/OT) HAVE INDICATED NOW THAT Pt IS NOT APPROPRIATE FOR ACUTE REHAB LEVEL OF THERAPY. IT ALSO SEEMS THAT Pt HAS BEEN DECLINING IN COGNITION AND FUNCTION OVER LAST FEW DAYS. SPOKE W/ Pt YINA WHO STATED THAT SHE COULD NOT DO 3 HOURS OF THERAPY A DAY. SPOKE W/ ALEC HOGAN WHO WAS GOING TO FOLLOW UP WITH DR SANTIAGO AND Pt/FAMILY REGARDING SNF OPTIONS. AT THIS TIME, Pt NOT APPROPRIATE FOR ACUTE REHAB BUT WILL CONTINUE TO FOLLOW WHILE STILL IN-HOUSE IN CASE OF IMPROVEMENT AND APPROPRIATENESS FOR 5N.
[2021-01-26 21:14] VITALS: BP 93/54
[2021-01-27] VITALS (29 sets, daily range): BP systolic 39–221; BP diastolic 25–145
--- NOTE | 2021-01-27 03:17 | NUR ---
ASSUMED CARE OF PT AT 1900. BEDSIDE REPORT RECIEVED. MINI ASSESSMENT COMPLETE. MEDS ADMINISTERED ORDERED, METOPROLOL HELD D/T LOW BP. PT C/O 11/18 RIGHT HIHP PAIN, REPOSITIONING UTILIZED FOR COMFORT, PRN PAIN PILL GIVEN. PT EXPERIENCING MILD CONFUSION C DELAYED RESPONSES AND LETHARGY, ONGOING. PROVIDED REORIENTATION FOR PT. PT HAD LARGE LIQUID STOOL SOILING R HIP DRESSING, CLEANSED INCISION, APPLIED NEW CLEAN DRESSING. MODERATE AMOUNT OF DRAINAGE OBSERVED. INCISION SITE CLEAN DRY C NO REDNESS HEAT OR FOUL ODOR. REILLED WATER. PT DENIES ANY OTHER NEEDS AT THIS TIME, CALL LIGHT IN REACH
[2021-01-27 11:52] LABS: CALCIUM 7.9 mg/dL (8.5-10.1); CREATININE 1.5 mg/dL (0.6-1.0); POTASSIUM 4.3 mmol/L (3.5-5.1)
--- NOTE | 2021-01-27 14:04 | NUR ---
I have reviewed the documentation by Meryl Sommer from 01/26/21 to 01/26/21 and I concur with it. KATH LIMA
--- NOTE | 2021-01-27 14:10 | NUR ---
PT ASSESSED AT START OF SHIFT. NOTED TO BE VERY SLEEPY AND LETHARGIC W/ SOME MILD CONFUSION. PER REPORT PT HAS BEEN LESS TALKATIVE AND MORE LETHARGIC FOR LAST FEW DAYS. DR. SANTIAGO IN TO SEE PT AND LABS ORDERED. RESULTS ON CRITICAL LABS CALLED TO HIM AND HE WAS TO RETURN W/ SOME ORDERS. IN THE INTERIM PT GIVEN SOME APPLE JUICE TO DRINK FOR LOW GLUCOSE BUT SHE WAS UNABLE TO DRINK IT DOWN FOR SOME CHRONIC SWALLOWING ISSUES. RAPID RESPONSE CALLED AND ORDER FOR I AMP D50 GIVEN IV PUSH. PT RESPONDED WELL BY WAKING UP MORE FULLY AND STATING SHE FELT BETTER. HOWEVER, CONDITION CONTINUED TO DECLINE W/ BP DROPPING EVEN AFTER IV NS BOLUS OF 500MLS IN ONE HOUR. ORDERS TO TRANSFER PT TO ICU. D5W INFUSING AFTER BOLUS GIVEN AND MG BOLUS TO BE GIVEN IN ICU. REPORT CALLED TO DREAD SAUCEDO AND PT TAKEN PER BED BY 2 CCU RN'S AT 1410.
--- NOTE | 2021-01-27 14:30 | NUR ---
RN TO RN REPORT COMPLETE. PT TRANSFERS TO THE ICU FROM THE CCU FOR HYPOTENSION AT 1430. HER PROPERTY IS IN THE ROOM AND HER IS AWARE OF THE TRANSFER.
[2021-01-27 17:50] LABS: HEMATOCRIT 26.1 % (37.0-47.0); HEMOGLOBIN 8.5 gm/dL (12.0-15.0); MCH 34.7 pg (26.0-34.0); MCHC 32.4 g/dL (28.0-37.0); RBC 2.44 mil/uL (4.20-5.00); RDW 21.8 % (10.5-14.5); WBC 6.1 thou/uL (4.0-11.0)
[2021-01-28] VITALS (41 sets, daily range): BP systolic 68–131; BP diastolic 38–91
--- NOTE | 2021-01-28 03:00 | NUR ---
AWAKE AND ALERT. CONFUSED AT TIMES O2 SAT 99 % ON ROOM AIR. RIGHT HIP DSG DRY AND INTACT HAVING BROWN LIQ STOOLS. VSS EXTREMELY BRUISED ALL OVER PT MARTINEZ KICKS LEGS UP IN THE AIR. PROGRESSING TOWARD GOALS
--- NOTE | 2021-01-28 05:34 | NUR ---
ASSUMED CARE OF PT AT 0300. UPON ASSESSMENT UNABLE TO OBTAIN AXILLARY OR ORAL TEMPERATURE, PRIMO KINNEY APPLIED. WILL REASSESS.
[2021-01-28 06:10] LABS: HEMATOCRIT 24.8 % (37.0-47.0); HEMOGLOBIN 8.3 gm/dL (12.0-15.0); MCH 35.3 pg (26.0-34.0); MCHC 33.6 g/dL (28.0-37.0); MCV 105.2 fL (80.0-100.0); RBC 2.36 mil/uL (4.20-5.00); WBC 6.2 thou/uL (4.0-11.0)
[2021-01-28 06:56] LABS: ALBUMIN 1.6 g/dL (3.4-5.0); CALCIUM 7.6 mg/dL (8.5-10.1); CREATININE 1.1 mg/dL (0.6-1.0); MAGNESIUM 2.1 mg/dL (1.8-2.4); PHOSPHORUS 2.4 mg/dL (2.5-4.9)
--- NOTE | 2021-01-28 09:50 | NUR ---
PT HAS A LOW BP WHEN SLEEPING BUT IS GCS 14. PT IS GIVEN A BOLUS 500ML NS; HER MAP DID COME UP TO 60.
--- NOTE | 2021-01-28 13:27 | NUR ---
PT IS MAINTAINING ADEQUATE BP. SHE REMAINS COOL WITH THE BEAR HUGGER ON SINCE THE START OF DAY SHIFT. GLUCOSE IS NORMAL WITH D5NS AND HYDROCORTISONE TX.
[2021-01-29] VITALS (20 sets, daily range): BP systolic 94–159; BP diastolic 49–104
[2021-01-29 07:26] LABS: ALBUMIN 1.7 g/dL (3.4-5.0); CALCIUM 7.1 mg/dL (8.5-10.1); CREATININE 0.9 mg/dL (0.6-1.0); PHOSPHORUS 2.4 mg/dL (2.5-4.9)
[2021-01-29 07:27] LABS: POTASSIUM 4.7 mmol/L (3.5-5.1)
--- NOTE | 2021-01-29 07:32 | EKG ---
[place] [address] [employer] [facility] [place] [address] ELECTROCARDIOGRAM REPORT Name: NICHOL HOUSE Room #: 240-P ADM IN M.R.#: [id number] Admission: 01/19/21 Attend Phys: Ant Asencio MD Discharge: Date of : 55 Report #: [id number] [facility] Test Date: 2021-01-27 Test Time: 13:26:35 Pat Name: NICHOL HOUSE Department: Room: 240 Gender: F Punch Hand: TRACEY : 1955 Requested By: Corinna Mims Order Number: [id number] MD: Jose Braun Measurements Intervals [place] Rate: 94 P: 9 [place]: 181 QRS: -56 QRSD: 111 T: 228 QT: 371 QTc: 464 Interpretive Statements Low voltage, artifact NSR Aberrant conduction of SV complex(es) Left axis deviation Compared to ECG 01/23/2021 18:06:38 Ventricular tachycardia now present Aberrant conduction of supraventricular beat(s) now present Left-axis deviation now present Atrial fibrillation no longer present Electronically Signed On 01-29-2021 7:32:01 CDT by Jose Braun [email or web address] <ELECTRONICALLY SIGNED> By: Jose Braun MD, FAC 01/29/21 0732 1326 1326 Jose Braun MD, [facility] /EPI
--- NOTE | 2021-01-29 07:38 | NUR ---
Pt TRANSFERRED TO ICU. WILL PLACE ON HOLD AND AWAIT NEW ORDERS
--- NOTE | 2021-01-29 07:44 | NUR ---
PATIENT TRANSFERRED TO ICU, WILL NEED NEW ORDERS ONCE MEDICALLY STABLE.
--- NOTE | 2021-01-29 12:29 | NUR ---
Discuses during am unit rounds, and los with hospitalist, move out of icu to [facility] when bed avaibile. Will need therapy eval to send with referrals to skilled rehab and insurance auth. No candidate for 5N. C-diff and will start treatment as ordered per MD. Ángel called Kenyon, her spouse to discussed skilled blue care list of choice and he decline to discuss skilled rehab while is in the ICU. He voiced some concerns, cm passed on to 4s supervisor plasma. Will cont. following as needed for dc needs.
[2021-01-30 06:22] LABS: ALBUMIN 1.7 g/dL (3.4-5.0); CALCIUM 7.4 mg/dL (8.5-10.1); CREATININE 0.8 mg/dL (0.6-1.0); PHOSPHORUS 2.6 mg/dL (2.5-4.9); POTASSIUM 4.2 mmol/L (3.5-5.1)
--- NOTE | 2021-01-30 08:25 | NUR ---
RECEIVED CARE OF THIS PATIENT AT 1900. PATIENT ALERT AND ORIENTED XSELF ONLY. HAS DE LA ROSA AND FECAL SYSTYM IN PLACE. IV IN RAC WITH FLUIDS INFUSING. DENIES PAIN. SLEPT MOST OF NIGHT.
[2021-01-30 11:18] VITALS: BP 117/94
--- NOTE | 2021-01-30 11:53 | NUR ---
ASSUMED PT CARE THIS AM. PT A&OX2, DOES NOT USE CALL LIGHT TO MAKE NEEDS KNOWN. PATIENT HAS A FMS AND A DE LA ROSA IN PLACE DRAINING WITHOUT ISSUE. PATIENT REFUSED SUPPOSITORY THIS AM. FALL PRECAUTIONS ARE IN PLACE,CALL LIGHT WITHIN REACH. PATIENT IN ISOLATION FOR C.DIFF. IV PATENT, FLUIDS INFUSING.
--- NOTE | 2021-01-30 15:03 | NUR ---
THERAPY HAD BEEN REORDERED AND THEY SAW PT THIS DAY. THEY INDICATED PT PH HAS DECINED SINCE THEY HAD WORKED WITH HER PRIOR GOING TO ICU. CM SPOKE WITH HER SPOUSE AND HE ASKED THAT REFERRAL BE SENT TO [facility] FOR REVIEW. JUANITA FOLLOWING REGARDNIG DC PLANNING.
[2021-01-30 16:48] VITALS: BP 141/101
[2021-01-30 19:18] VITALS: BP 126/91
--- NOTE | 2021-01-31 05:05 | NUR ---
Assumed pt care at 1900. A/OX2-3,confused and forgetful but able to make needs known. VV. C/o pain to right hip,medicated per EMAR with relief reported. Lamar on right hip incision,edges well approximated,dsg wet with pink drainage;changed without any problems. Fecal mgnt/hernández in place and patent. IVF infusing via RAC w/o problems. Fall precautions in place. Remains on special contact isolation. Will continue to monitor pt.
[2021-01-31 07:45] VITALS: BP 96/39
--- NOTE | 2021-01-31 09:37 | NUR ---
WOUND CONSULT; UPON COMPLETEING A RISK ASSESSMENT RELATED TO A LOW ALBUMIN REPORT A SKIN TEAR WAS IDENTIFIED TO THE RIGHT FORARM. A BORDER FOAM WAS COVERING THE WOUND. INFLAMMATION WAS SEEN. THE COCCYX HAS A SMALL STAGE 2 0.5 X 0.5 X 0.1 WITH SCANT SEROSANGINOOUS DRAINAGE. RECCOMMENDATIONS; -XEROFORM AND BORDER FOAM TO THE RIGHT F/A CHANGE M/W/F PRN. -ZGUARD TO COCCYX APPLY BID.
[2021-01-31] MEDS ORDERED: SODIUM BICARBO650 M3 PO (12:30)
[2021-01-31] MEDS ORDERED: VANCOCIN 125 M125 M1 PO (12:30)
--- NOTE | 2021-01-31 14:54 | NUR ---
[facility] INDICATED THAT THEY ARE ABLE TO ACCEPT PT ONCE MEDICALLY STABLE. HOSPITALIST HAD SPOKEN WITH SPOUSE THIS DAY AND HAD ORDERED SOME LABS. CM TO KEEP BOP UPDATED ON PT'S PROGRESS FOR DC. CM FOLLOWING REGARDING DC PLANNING.
[2021-01-31 16:08] VITALS: BP 94/21
[2021-01-31 17:03] LABS: URINE BILIRUBIN NEGATIVE (Negative); URINE BLOOD 2+ (Negative); URINE CLARITY SL CLOUDY; URINE COLOR YELLOW; URINE GLUCOSE-RANDOM* NEGATIVE (Negative); URINE KETONES NEGATIVE (Negative); URINE NITRITE-REFLEX NEGATIVE (Negative); URINE PROTEIN (DIPSTICK) TRACE (Negative); URINE UROBILINOGEN 0.2 E.U./dl (0.2-1.0)
[2021-01-31 17:22] LABS: URINE LEUKOCYTES-REFLEX 3+ (Negative)
[2021-01-31 18:09] LABS: RENAL EPITHELIAL CELLS 0-3 Few /LPF (None Seen); SQUAMOUS 4-10 Moderate /LPF (0-3); URINE RBC 3-10 Few /HPF (NONE SEEN); URINE WBC-REFLEX >25 Many /HPF (0-5)
[2021-01-31 18:10] LABS: YEAST-REFLEX Present (None Seen)
[2021-01-31 19:44] VITALS: BP 122/73
[2021-02-01 00:17] LABS: HEMATOCRIT 26.4 % (37.0-47.0); HEMOGLOBIN 8.6 gm/dL (12.0-15.0); MCH 33.7 pg (26.0-34.0); MCHC 32.7 g/dL (28.0-37.0); MCV 103.2 fL (80.0-100.0); RBC 2.56 mil/uL (4.20-5.00); WBC 9.9 thou/uL (4.0-11.0)
[2021-02-01 00:53] LABS: ALBUMIN 1.8 g/dL (3.4-5.0); CALCIUM 7.5 mg/dL (8.5-10.1); MAGNESIUM 1.4 mg/dL (1.8-2.4); POTASSIUM 3.1 mmol/L (3.5-5.1); TOTAL BILIRUBIN 0.5 mg/dL (0.2-1.0)
[2021-02-01 03:15] LABS: FOLIC ACID 4.2 ng/mL (8.6-58.9)
--- NOTE | 2021-02-01 05:24 | NUR ---
Assumed pt care at 1900. A/OX3 with confusion/forgetfulness noted,keeps saying she wants to leave and go home reoriented she's in the hospital. VSS.No complaints of pain. Pt has weeping on right arm/hip dsg changed w/o problems. Java Software Developer Eryn notified lab is having difficulty drawing blood d/t pt's weeping out water/edema,gave orders to consult IV team for midline insertion. Development Educator inserted new IV on RUE with one attempt,labs drawn and sent to lab. K 3.1,Mg 1.4,N.O to replace electrolytes given and implemented. Pt has been NPO since midnight for EGD today. Fall precautions in place,frequent checks on pt. Resting quietly at this time,will continue to monitor pt. Remains on special contact isolation.
[2021-02-01 08:00] VITALS: BP 98/61
--- NOTE | 2021-02-01 14:49 | NUR ---
PT HAVING EGS THIS DAY. PSYC CONSULTED. CM FOLLOWING REGARDING DC PLANNING.
[2021-02-01 16:30] VITALS: BP 89/40
[2021-02-01 17:37] VITALS: BP 98/66
--- NOTE | 2021-02-01 18:05 | NUR ---
VASCULAR ACCESS NURSE NOTED THIS EVENING AT THIS TIME THAT THERE WAS [facility]. THIS ORDER DID NOT RELAY TO THE PAGER. SPOKE TO TAYLOR SAUCEDO AND THE MIDLINE IS NO LONGER NECESSARY.
[2021-02-01 21:30] VITALS: BP 127/79
--- NOTE | 2021-02-02 03:25 | NUR ---
Pt. rested quietly during the night when checked on during frequent rounds. She c/o right hip pain and po pain med given (see emar) with some relief noted. Had a samll loose stool and c-dii recautions in place. Turned and repositioned. Bed alarm is on.
[2021-02-02 05:16] LABS: CALCIUM 7.5 mg/dL (8.5-10.1); CREATININE 0.8 mg/dL (0.6-1.0); MAGNESIUM 2.2 mg/dL (1.8-2.4)
[2021-02-02 08:49] VITALS: BP 122/74
--- NOTE | 2021-02-02 09:43 | NUR ---
WOUND CARE F/U; THE RIGHT FORARM SKIN TEAR IS DRAINING COPIOUS SEROSANGINOUS DRAINAGE DUE TO 3RD SPACING. I WILL INCREASE THE FREQUENCY OF THE DRESSING CHANGES AND AD A LIGHT TUBIGRIP. DISCUSSED WITH SHERYL
--- NOTE | 2021-02-02 09:57 | NUR ---
Consider adding MVI, folate, Vit C, thiamine, B-complex daily r/t hx ETOH. Recommend weight 2x/wk to gain accurate trend pattern. Please assist with meals, provide cueing/encouragement, physical assist as needed r/t decline.
--- NOTE | 2021-02-02 15:52 | NUR ---
PLAN IS TO SEE HOW PT DOES OVER THE WEEKEND. THEN DETERMINE SKILLED VS. HOSPICE SERVICES. CM FOLLOWING REGARDING DC PLANNING.
[2021-02-02 16:57] VITALS: BP 110/65
--- NOTE | 2021-02-02 17:15 | NUR ---
TODAY THIS PT HAS HAD SOME STATED PAIN IN WHICH WAS TAKEN CARE OF WITH MEDICATION. SHE HAS BEEN GETTING TURNED EVERY TWO HOURS TODAY SHE HAS HAD HER DRESSING CHANGED BY WOUND CARE. SHE HAS HAD SOME INCONTINENT OCCURENCES TODAY. SHE OTHERWISE HAS BEEN TAKING HER MEDICATIONS WITH PUDDING. SHE IS SLIGHTLY SLOW TO REACT TO THINGS BUT OTHERWISE SHE HAS BEEN IN HER ROOM RESTING.
[2021-02-02 19:49] VITALS: BP 121/81
[2021-02-03 07:31] VITALS: BP 119/78
--- NOTE | 2021-02-03 09:53 | NUR ---
LATE ENTRY 02/03/21 @ 1900, IN BED CALM AND COOPERATIVE WITH CARE. SWOLLOWS P.O MEDS CRUSHED IN PUDDING AND LIQUID MEDS SLOWLY BUT EVENTUALLY ABLE TO SWOLLOW ALL P.O. MEDS. VANCOMYCIN 125MG PROVIDED P.O. NOTED TO BE ALERT BUT ORIENTED X1 ONLY. NS RUNNING @ 126MLS/HOUR. FALL RISK, BED IN LOW POSITION WITH BED ALARM SET AND CALL LIGHT WITHIN REACH. ROUNDED ON OFTEN AND INCONTINENT CARE PROVIDED.
[2021-02-03 16:50] VITALS: BP 127/65
--- NOTE | 2021-02-03 17:21 | NUR ---
TODAY THIS PT HAS BEEN TURNED EVERY TWO HOURS AND HAS HAD SOME STATED PAIN IN WHICH SHE HAS RECIEVED MEDICATION FOR. SHE IS STILL SLOW TO RESPOND BUT SHE IS RESPONDING AND ANSWERING MORE QUESTIONS THE DAY GOES ON. SHE HAS HAD A BATH TODAY AND HAS HAD HER DRESSINGS CHANGED.
[2021-02-03 20:00] VITALS: BP 106/64
[2021-02-04 05:43] LABS: HEMATOCRIT 27.4 % (37.0-47.0); HEMOGLOBIN 9.4 gm/dL (12.0-15.0); MCH 35.2 pg (26.0-34.0); MCHC 34.2 g/dL (28.0-37.0); MCV 102.9 fL (80.0-100.0); RBC 2.66 mil/uL (4.20-5.00); RDW 21.2 % (10.5-14.5); WBC 9.5 thou/uL (4.0-11.0)
--- NOTE | 2021-02-04 06:39 | NUR ---
ASSUMED CARE AT 1900, PT SLEPT THROUGH THE NIGHT, DID NOT VOICE ANY PAIN OR DISCOMFORT, REPOSITIONED EVERY TWO HOURS WITH FREQUENT CHANGE, NO ADVERSE REACTION FROM CURRENT TREATMENT NOTED WILL CONTINUE TO MONITOR.
[2021-02-04 06:50] LABS: CALCIUM 7.7 mg/dL (8.5-10.1); CREATININE 0.8 mg/dL (0.6-1.0); MAGNESIUM 1.7 mg/dL (1.8-2.4); TOTAL BILIRUBIN 0.8 mg/dL (0.2-1.0); TOTAL PROTEIN 4.7 g/dL (6.4-8.2)
[2021-02-04 06:54] LABS: POTASSIUM 2.9 mmol/L (3.5-5.1)
--- NOTE | 2021-02-04 16:52 | NUR ---
today this pt has had some stated pain in which she recieved medications for. she has had a bath as well as all her dressings changed this afternoon. she hasn't had any bowel movements today so far. she has been getting turned q 2 hours and she has been tolerating her potassium runs well.
[2021-02-04 20:44] VITALS: BP 146/56
--- NOTE | 2021-02-05 02:56 | NUR ---
ASSUMED PT CARE THIS PM. PT IS ALERT AND ORIENTED x4. PT HAS EXTERNAL FEMALE CATH IN PLACE. PT IS CURRENTLY NPO FOR A STRESS TEST. PT DID NOT C/O OF LIGHTHEADNESS OR PAIN. PT IS ON RA. MEDS GIVEN PER EMAR ORDERS. NO VISIBLE SIGN OF DISTRESS NOTED. FALL PRECAUTIONS IN PLACE. WILL CONTINUE TO MONITOR.
--- NOTE | 2021-02-05 03:17 | NUR ---
ASSUMED PT CARE THIS PM. PT IS ALERT AND ORIENTED TO SELF WITH CONFUSION.PTIS ON CONTACT ISOLATION FOR C-DIFF. PT HAS ASHLYN TO THE R HIP. PT HAS OPEN SORE THE R UPPER, L HIP, COCCYX, 9 ASHLYN TO THE SIDE OF THE R KNEE AND SKIN TEAR TO THE RFA. DRSG CHANGE COMPLETEED. PT HAS SWELLING TO TTHE LUE AND R HAND. PT HAS DE LA ROSA IN PLACE. PT IS INCONTINENT OF BM. PT IS Q2HR TURN. PT DID NOT C/O PAIN. PT TOLEARTING RA. FALL PRECAUTIONSIN PLACE. WILL CONTINUE TO MONITOR.
[2021-02-05 06:28] LABS: HEMATOCRIT 26.2 % (37.0-47.0); HEMOGLOBIN 8.5 gm/dL (12.0-15.0); MCH 34.3 pg (26.0-34.0); MCHC 32.5 g/dL (28.0-37.0); MCV 105.6 fL (80.0-100.0); RBC 2.48 mil/uL (4.20-5.00); RDW 21.1 % (10.5-14.5); WBC 8.4 thou/uL (4.0-11.0)
[2021-02-05 06:47] LABS: ALBUMIN 1.7 g/dL (3.4-5.0); CALCIUM 7.8 mg/dL (8.5-10.1); CREATININE 0.8 mg/dL (0.6-1.0); MAGNESIUM 1.6 mg/dL (1.8-2.4); POTASSIUM 3.6 mmol/L (3.5-5.1); TOTAL BILIRUBIN 0.8 mg/dL (0.2-1.0); TOTAL PROTEIN 4.8 g/dL (6.4-8.2)
[2021-02-05 08:04] VITALS: BP 115/39
--- NOTE | 2021-02-05 12:34 | NUR ---
ASSUMED PT CARE THIS AM. PT A&OX1, DOES NOT MAKE NEEDS KNOWN. PATIENT BENG REPOSITIONED Q2H. WITH MORNING MEDICATIONS, PATIENT HELD IN HER MOUTH WITH YOGURT FOR 3 MINUTES, ENCOURAGED TO SWALLOW, BUT THIS TOOK 3 MINUTES. PATIENT THEN ASKED FOR A SIP OF WATER AND AGAIN HELD THIS IN HER MOUTH FOR AN EXTENEDED AMOUNT OF TIME. PATIENT REFUSED OTHER MEDICATIONS THIS AM. FALL PRECAUTIONS ARE IN PLACE,CALL LIGHT WITHIN REACH. PATIENT ON ROOM AIR. REMAINS IN ISOLATION FOR C DIFF.
[2021-02-05 15:06] VITALS: BP 110/27
--- NOTE | 2021-02-05 16:40 | NUR ---
OT WORKED WITH PT A LITTLE THIS DAY. PT VARIANCED HER. PT'S SISTER CAME INTO TOWN FROM [place] AND INDICATED THAT HER BROTHER IN LAW HADN'T INFORMED HER OF PT'S CURRENT CONDITION AND THAT SHE WOULD LIKE OVERVIEW TO WHAT'S GOING ON WITH PT. JAYDE TSANG . CM CONVEYED INFO TO PHYSICIAN. LOOKING AT SNF/HOSPICE SERVICES. CM FOLLOWING REGARDING DC PLANNING.
--- NOTE | 2021-02-05 17:06 | PATH ---
[facility] [address] [place] [address] PATHOLOGY RPT PROCEDURE Name: NICHOL HOUSE Room #: 454-P ADM IN M.R.#: [id number] Admission: 01/19/21 Date of : 55 Discharge: Report #: [id number] Path Case #: [id number] [facility] Accession Number: [id number] . 01 Material submitted: . gastrointestinal site - GASTRIC BX GASTRITIS R/O H. PYLORI . 01 Clinical history: . MELENA, GERD, DECREASE IN APPETITE . 02 Diagnosis: Gastric mucosa, gastritis, rule out H. pylori, endoscopic biopsy: - Mild active gastritis with reactive gastropathy. - Negative for intestinal metaplasia or atrophy. - Negative for Helicobacter pylori (properly controlled immunohistochemical stain performed). 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 02 Electronically signed: . Loida Woodson MD, Pathologist NPI- [id number] . 01 Gross description: . The specimen is received in formalin, labeled "Casey Nichol, gastric BX gastritis R/O H-pylori" and consists of multiple eaton irregular tissues aggregating 0.8 x 0.4 x 0.2 cm which are submitted in toto in A1.(UTE; 02/02/2021) DKA/DKA 02/02/2021 1235 Local . 02 Pathologist provided ICD-10: K29.70, K31.9 . 02 CPT . 773978, [id number] Specimen Comment: A courtesy copy of this report has been sent to [phone], [phone] Specimen Comment: [id number] Specimen Comment: Report sent to / DR NGUYEN Performed at: [address], [place] [id number] MD Yann Castellano MD Phone: [phone] Performed at: [address] [id number] MD Loida Woodson MD Phone: [phone]
[2021-02-05 20:48] VITALS: BP 116/70
--- NOTE | 2021-02-06 03:15 | NUR ---
ASSUMED PT CARE THIS PM. PT IS ALERT AND ORIENTED TO SELF WITH CONFUSION. PT IS ON CONTACT PRECAUTION FOR C-DIFF. PT HAS BEEN HAVING DIARRHEA ON THIS SHIFT. DRSG CHANGE COMPLETED. PT HAS SWELLING TO THE R HAND. NO VISIBLE SIGN OF DISTRESS WAS NOTED. PT IS ON RA. FALL PRECAUTING IN PLACE. WILL CONTINUE TO MONITOR.
[2021-02-06 07:43] VITALS: BP 113/68
[2021-02-06 08:04] LABS: HEMATOCRIT 26.5 % (37.0-47.0); HEMOGLOBIN 8.6 gm/dL (12.0-15.0); MCH 34.3 pg (26.0-34.0); MCHC 32.5 g/dL (28.0-37.0); MCV 105.5 fL (80.0-100.0); RBC 2.51 mil/uL (4.20-5.00); RDW 21.2 % (10.5-14.5); WBC 7.4 thou/uL (4.0-11.0)
[2021-02-06 08:22] LABS: ALBUMIN 1.8 g/dL (3.4-5.0); DIRECT BILIRUBIN 0.2 mg/dL (<0.1-0.2); TOTAL BILIRUBIN 0.8 mg/dL (0.2-1.0)
[2021-02-06 08:24] LABS: INR 1.6; PROTIME 16.7 Seconds (9.3-11.4)
--- NOTE | 2021-02-06 09:52 | NUR ---
WOUND CARE F/U; THE PATIENT REMAINAS CONFUSED. THE RIGHT FORARM SKIN TEARS HAVE NO S/S OF INFECTION. THERE IS EDEMA TO THIS EXTREMITY WHICH IS CAUSING COPIOUS DRAINAGE. THE COCCYX WAS NOT ASSESS TODAY DUE TO CONDITION. RECCOMMENDATIONS; CONTINUE CURRENT WOUND CARE ORDERS. RN PRESENT.
--- NOTE | 2021-02-06 12:02 | NUR ---
SPOKE WITH RN AND CASE MGMT. PT. AND FAMILY HAVE ELECTED HOSPICE/PALLIATIVE CARE AT THIS TIME. PT. IS NOT APPROPRAITE TO CONTINUE WITH OT SERVICES SHE DOES NOT HAVE FUNCTIONAL GOALS. OT WILL D/C AT THIS TIME.
--- NOTE | 2021-02-06 13:06 | NUR ---
Nutrition: Family desiring hospice/comfort care for pt. RD deferring evals.
--- NOTE | 2021-02-06 13:34 | NUR ---
PHYSICIAN HAD SPOKEN WITH PT'S SPOUSE AND SISTER THIS AM. THEY ARE INTERESTED IN HOSPICE SERVICES. CM SPOKE WITH SPOUSE ABOUT HOSPICE GIP HERE WITH [facility] VS. TRANSFER TO [facility]. SPOUSE IS INTERESTED IN REFERRAL BEING SENT TO [facility] FOR POSSIBLE ADMISSION. REFERRAL SENT. CM FOLLOWING REGARDING DC PLANNING.
--- NOTE | 2021-02-06 17:13 | NUR ---
Pt A & O x2. pt received medications as ordered. pt refused PO meds this shift. pt had diarrhea throughout the shift. pt remains in contact precautions. Pt has hernández in place. pt VS stable. pt is x 2 assist with ADLS and cares. Pt is able to make needs known.
[2021-02-06 19:45] VITALS: BP 119/66
--- NOTE | 2021-02-07 01:49 | NUR ---
ASSUMED PT CARE THIS PM. PT IS ALERT AND ORIENTED TO SELF WITH CONFUSION.PT IS ON CONTACT ISOLATION FOR C-DIFF.DRSG CHANGE COMPLETED. PT DID NOT C/O PAIN. PT HAS DE LA ROSA IN PLACE. MEDS GIVEN PER EMAR ORDERS. NO VISIBLE SIGN OF DISTRESS NOTED. FALL PRECAUTIONS IN PLACE. WILL CONTINUE TO MONITOR.
[2021-02-07 07:37] VITALS: BP 118/75
--- NOTE | 2021-02-07 08:16 | P ---
[facility] [place] [address] PROCEDURE REPORT Name: NICHOL HOUSE Room #: 454-P [facility] [place] M.R.#: [id number] Admission: 01/19/21 Attend Phys: Ant Asencio MD Discharge: Date of : 55 Report #: [id number] THIS REPORT FOR: cc: FAM - Family physician unknown FAM - Family physician unknown Michael Rodriguez MD ~ cc: Ant Asencio MD DATE OF SERVICE: 02/01/2021 PROCEDURE PERFORMED: Upper endoscopy with biopsies. HISTORY OF PRESENT ILLNESS: The patient is a 65-year-old female who was admitted after a fall, had a right hip fracture, underwent intramedullary nailing on 01/20/2021. The patient is C. diff positive on 01/28/2021. She was placed on a pureed diet over the weekend, concerns about swallowing deficits. Hemoglobin did drop during this hospital stay to a low of 6.3. She was 9.8 on admission. Stool was Hemoccult negative x 1 yesterday. Plan is for upper endoscopy. She has a history of alcohol abuse as well. DESCRIPTION OF PROCEDURE: The risks and benefits of the procedure were explained to the patient's . Those risks including but not limited to bleeding, perforation, and the risk of sedation. He understood these risks and gave informed consent. Sedation was given using propofol per Anesthesia. Next, using a standard Olympus upper endoscope, the scope was placed in the patient's mouth and advanced under direct vision through the esophagus, stomach, and into the second portion of the duodenum. The larynx was normal in appearance. The upper and mid esophagus was normal. There was a narrowing of the distal esophagus as well as grade B erosive esophagitis. I was able to advance the scope through the narrowing with some mild resistance. This caused a small mucosal tear with no evidence of bleeding. In the stomach, there was a mild gastritis. Several small erosions were noted in the body. A single 4 mm clean white based ulcer was noted in the antrum. No evidence of bleeding. Biopsies were obtained to rule out H. pylori. The pylorus was normal and patent. The duodenal bulb, first and second portion were all normal. There was no evidence of bleeding throughout the exam today. The scope was then withdrawn and the procedure terminated. The patient tolerated the procedure well. IMPRESSION: 1. Grade B erosive esophagitis. 2. Narrowing distal esophagus, status post dilation with the scope passing through this area. 3. Gastritis with small erosions and a single small ulcer, nonbleeding. RECOMMENDATIONS: 1. Await biopsy results. [address] [id number] PROCEDURE REPORT Name: NICHOL HOUSE Room #: 454-P [facility] M.R.#: [id number] Admission: 01/19/21 Attend Phys: Ant Asencio MD Discharge: Date of : 55 Report #: [id number] 2. Recommend continued daily PPI therapy long-term. 3. Observe the patient post-procedure and continue to monitor hemoglobin. Thank you for allowing me to participate in her care. <ELECTRONICALLY SIGNED> By: Michael Rodriguez MD 02/07/21 [id number] Michael Rodriguez MD /nt
[2021-02-07] MEDS ORDERED: ACETAMINOPHEN325 M1 PO (13:16)
[2021-02-07] MEDS ORDERED: MORPHINE S100 MG/51 SUBLING (13:16)
[2021-02-07] MEDS ORDERED: LORAZEPAM I2 MG/1 M2 SUBLING (13:16)
[2021-02-07] MEDS ORDERED: TUCKS1 EAC1 TOP (13:16)
--- NOTE | 2021-02-07 14:01 | NUR ---
PT ACCEPTED AT HOSPICE HOUSE THIS DAY. SPOUSE SIGNED ADMISSION PAPERWORK AT HOSPICE. OUTSIDE HOSPITAL DNR FORM COMPLETED. NURSE CALLED REPORT. CM ARRANGED [facility] FOR [facility] AROUND [phone]. CM NOTIFIED PT AND SPOUSE. NO OTHER CM INTERVENTION INDICATED. CASE CLOSED.
--- NOTE | 2021-02-07 14:52 | NUR ---
Pt received discharge orders to hosp[facility]. Pt had diarrhea this shift. Pt is A & O x2. pt is bedrest. pt is room air. wound pics withheld due to pallative care status. Pt transferred by [facility] with hernández and IV intact for hospice. pt is able to make needs known.
== END 2021-02-07 15:04 | disposition hospice, inpatient (51) | DRG 853 ==
LOC: ER 17:00 → EROBS 19:20 → 4W 19:20 → 4S 19:20 → ICU 01-27 14:33 → 4W 01-29 13:32
PROVIDERS: Emergency Medicine; Hospitalist; Nurse Practitioner; Nurse Practitioner Family; Orthopaedic Surgery Hand Surgery; Student in an Organized Health Care Education/Training Program; ADMIT Internal Medicine; ATTEND Internal Medicine
PROC: 0QH606Z Insertion of Intramedullary Internal Fixation Device into Right Upper Femur, Open Approach (ICD-10-PCS; principal; 2021-01-20)
PROC: 30233N1 Transfusion of Nonautologous Red Blood Cells into Peripheral Vein, Percutaneous Approach (ICD-10-PCS; 2021-01-21)
PROC: 0DB68ZX Excision of Stomach, Via Natural or Artificial Opening Endoscopic, Diagnostic (ICD-10-PCS; 2021-02-01)
DX: A41.9 Sepsis, unspecified organism (principal); S72.144A Nondisplaced intertrochanteric fracture of right femur, initial encounter for closed fracture; N17.0 Acute kidney failure with tubular necrosis; E43 Unspecified severe protein-calorie malnutrition; G93.41 Metabolic encephalopathy; K21.01 Gastro-esophageal reflux disease with esophagitis, with bleeding; K22.11 Ulcer of esophagus with bleeding; K29.71 Gastritis, unspecified, with bleeding; N39.0 Urinary tract infection, site not specified; D62 Acute posthemorrhagic anemia; E87.2 Acidosis; A04.72 Enterocolitis due to Clostridium difficile, not specified as recurrent; E87.1 Hypo-osmolality and hyponatremia; I48.20 Chronic atrial fibrillation, unspecified; I13.0 Hypertensive heart and chronic kidney disease with heart failure and stage 1 through stage 4 chronic kidney disease, or unspecified chronic kidney disease; M54.9 Dorsalgia, unspecified; N18.9 Chronic kidney disease, unspecified; R19.7 Diarrhea, unspecified; E83.42 Hypomagnesemia; G89.29 Other chronic pain; E87.5 Hyperkalemia; Z96.641 Presence of right artificial hip joint; I50.9 Heart failure, unspecified; M19.90 Unspecified osteoarthritis, unspecified site; I48.0 Paroxysmal atrial fibrillation; G62.9 Polyneuropathy, unspecified; R53.81 Other malaise; B96.1 Klebsiella pneumoniae [K. pneumoniae] as the cause of diseases classified elsewhere; E16.2 Hypoglycemia, unspecified; I95.9 Hypotension, unspecified; K64.9 Unspecified hemorrhoids; R41.0 Disorientation, unspecified; K74.60 Unspecified cirrhosis of liver; Z20.822 Contact with and (suspected) exposure to COVID-19; F11.10 Opioid abuse, uncomplicated; F10.20 Alcohol dependence, uncomplicated; M81.0 Age-related osteoporosis without current pathological fracture; Z66 Do not resuscitate; Z51.5 Encounter for palliative care; Z68.22 Body mass index [BMI] 22.0-22.9, adult; Z98.42 Cataract extraction status, left eye; Z98.41 Cataract extraction status, right eye; W18.39XA Other fall on same level, initial encounter; Y93.89 Activity, other specified; Y92.89 Other specified places as the place of occurrence of the external cause; Y99.8 Other external cause status
CPT/HCPCS: 10047; 10078; 10100; 50010; 50101; 50133; 50386; 50455; 50635; 51412; 51538; 51817; 52304; 56524; 57092; 57897; 58263; 62110; 62900; 70005